=== PATIENT | male | born 1975 | race Caucasian/White ===

== ENCOUNTER 2016-08-02 01:59 | Day surgery (SDC) | payer OTHER ==
[~2016-08-02] VITALS: Ht 182.9 cm; Wt 137.0 kg
[2016-08-02] VITALS (11 sets, daily range): BP systolic 109–136; BP diastolic 77–91; PULSE 67–95; RESP 16; O2SAT 95–98
[~2016-08-02 01:59] MED LIST: ASCO100089 PO; ASPI325T32 PO; CHOL500051 PO; DIAZ5TAB3 PO; FLUT16SP NOSTRIL; HYDR-4003 PO; METO-272 PO; MULT1CAP33 PO; NITR0.4T SL; THIA100T64 PO
[2016-08-02 12:10] LABS: BASOPHILS % (AUTO) 0.3 % (0-3); EOSINOPHILS % (AUTO) 4.1 % (0-5); MONOCYTES % (AUTO) 7.5 % (4-12); Mean Corpuscular Hemoglobin 29.2 pg (27.0-35.0); Mean Corpuscular Volume 85.4 fL (81-100); NEUTROPHILS % (AUTO) 66.4 % (40-74); Platelet Count 163 bil/L (150-400)
[2016-08-02 12:25] LABS: INR 0.96 ratio
[2016-08-02] MEDS ORDERED: Heparin 10,000 Unit/1,000 mL NS Premix IV ONE (12:33)
[2016-08-02] MEDS ORDERED: Isoproterenol 200 mCg/50 mL D5W IV IV ONE (12:34)
[2016-08-02] MEDS ORDERED: Heparin 1,000 Unit/mL 10 mL Inj ONE (12:35)
[2016-08-02] MEDS ORDERED: fentaNYL-PF 50 mCg/mL 2 mL Inj ONE ×2 (14:04→14:38)
[2016-08-02] MEDS ORDERED: HYDROcodone-APAP 5-325 mg Tablet PO PRN (15:50)
[2016-08-02] MEDS ORDERED: Ondansetron 2 mg/mL 2 mL Inj IVPUSH PRN (15:50)
--- NOTE | 2016-08-02 19:51 | NUR ---
Pt discharged to home, ambulatory, accompanied by friend. Pt's VSS, Rt groin site CDI with no bleeding/hematoma noted. Pt given all discharge instructions, IVs discontinued intact, Pt received follow up appt. Pt had no further questions at time of d/c.
--- NOTE | 2016-08-02 21:00 | PROCED ---
[address] [address] PROCEDURE NOTE PATIENT: SANG CASANOVA : 1975 MR#: [id number] ADMIT: 08/02/2016 JOB ID: [id number] DATE OF SERVICE: 08/02/2016 PREOPERATIVE DIAGNOSIS(ES): Nonsustained ventricular tachycardia and syncope. POSTOPERATIVE DIAGNOSIS(ES): Normal electrophysiology study. PROCEDURES: 1. Comprehensive electrophysiology study with left atrial pacing recording via the coronary sinus catheter. 2. Arrhythmia provocation. 3. Drug provocation with isoproterenol infusion. 4. Fluoroscopy. SURGEON: Melecio Garza MD, electrophysiology. CLOTH BLEACHING SUPERVISOR: Gaurav Mcbride. ANESTHESIA: Gentle dosing of Versed and fentanyl were utilized for an appropriate level of sedation. INDICATION: The patient is a pleasant 40-year-old man with a structurally normal heart and no significant epicardial coronary artery disease, with multiple salvos of nonsustained VT and reports syncope. After discussion of the risks and benefits of the EP study, he opted to proceed. PROCEDURAL DESCRIPTION: Following informed consent, patient was taken to the EP laboratory in a fasting nonsedated state, where he was prepped in the usual sterile fashion. The right inguinal region was infiltrated with 1% lidocaine. Then, using modified Seldinger technique, one 8, one 7, and one 6-[place] sheath were inserted the right femoral vein. Under fluoroscopic guidance, a deflectable decapolar catheter was advanced in the coronary sinus with the most proximal bipoles at the os of the sinus. A Flako quadripolar catheter was advanced to the RV apex and a CRD 2 quadripolar catheter was advanced to the His position. A comprehensive electrophysiology study was undertaken with right atrial pacing recording, right ventricular pacing recording, His bundle recording, and left atrial pacing recording via the coronary sinus catheter. Retrograde conduction showed no VA conduction. Antegrade conduction showed an antegrade jump without echoes or AV ga reentry tachycardia. Aggressive arrhythmia provocation was then undertaken from the ventricle with single, double and triple extrastimuli at 2 cycle lengths of both [address]. This was done from both the RV apex and outflow tract on and off isoproterenol to 2 mcg/minute. Despite these aggressive maneuvers, no ventricular tachycardia was induced. This therefore concluded our procedure. All catheters and sheaths were removed. Manual pressure was held for hemostasis. The patient was transferred to the [facility] for monitoring, bedrest, and discharge. COMPLICATIONS: None. ESTIMATED BLOOD LOSS: 5-10 cc. FINDINGS: 1. Baseline rhythm is sinus with an RR interval of 951 msec, ND 164 msec, QRS 107 msec, QT 380 msec. 2. Intracardiac intervals: AH interval 97 msec, HV 38 msec. 3. Retrograde conduction. No VA conduction was seen. 4. Antegrade conduction. AV Wenckebach seen at 580 msec. Fast pathway ERP is 500 msec, with [address] Slow pathway ERP is [address] train. No echoes were inducible. AV ga reentry tachycardia was seen. 5. Aggressive ventricular arrhythmia provocation maneuvers as described above with single, double, triple extrastimuli at 2 cycle lengths and two ventricular positions, both on and off isoproterenol. No VT was inducible. IMPRESSION: Normal electrophysiology study with dual atrioventricular ga physiology without inducible ventricular tachycardia. PLAN: 1. Bedrest x4 hours. 2. Resume beta blockade. 3. Monitoring and discharge from the [facility]. 4. Follow up with me or Nico Panda PA-C, in clinic in four weeks. ATTENDING STATEMENT: Melecio Hyman MD, electrophysiology attending, was present for and supervised/performed all aspects of this procedure.
== END 2016-08-02 23:59 | disposition home or self-care (01) ==
LOC: SPI 01:59 → SOUO 23:59
PROVIDERS: ATTEND Internal Medicine Cardiovascular Disease
DX: I47.2 Ventricular tachycardia (principal); R55 Syncope and collapse; I25.10 Atherosclerotic heart disease of native coronary artery without angina pectoris; I10 Essential (primary) hypertension; F17.200 Nicotine dependence, unspecified, uncomplicated; Z79.82 Long term (current) use of aspirin; Z85.51 Personal history of malignant neoplasm of bladder
CPT/HCPCS: 36415; 80048; 85025; 85610; 93620; 93621; 93623; 99152; 99153; C1730; J1644; J2250; J3010; J7030